=== PATIENT | female | born 1950 | race Caucasian/White ===

== ENCOUNTER → 2021-11-25 12:23 | Outpatient (CLI) | payer MEDICARE, SELFPAY ==
--- NOTE | 2021-11-25 12:29 | XR_ITS ---
FINAL REPORT CLINICAL HISTORY: RT foot sx back in august 2021 FINDINGS: RIGHT FOOT Three views of the right foot demonstrate postoperative changes of the midfoot and forefoot involving the cuneiform and 1st, 2nd and 3rd metatarsals and the 1st metatarsophalangeal joint. There are multiple screw plates and screws present. There is a questionable small fracture of the proximal lateral aspect of the 2nd proximal phalanx. There are moderate degenerative changes. There are calcaneal spurs. The bones are osteopenic. There are no soft tissue abnormalities. IMPRESSION: Postoperative and degenerative changes as described. Questionable small fracture of the 2nd proximal phalanx. Follow-up radiographs may be helpful. Reviewed, Interpreted and Dictated by Sorin Berry III, MD Transcribed by Georgie Redding Authenticated by Sorin Berry III, MD on 11/25/2021 01:18:06 PM [facility]
== END ==
PROVIDERS: PCP Family Medicine; Visit Provider Orthopaedic Surgery
DX: Z09 Encounter for follow-up examination after completed treatment for conditions other than malignant neoplasm (principal); M79.671 Pain in right foot
CPT/HCPCS: 73630

== ENCOUNTER → 2022-02-24 12:26 | Outpatient (CLI) | payer MEDICARE, SELFPAY ==
--- NOTE | 2022-02-24 12:32 | XR_ITS ---
FINAL REPORT CLINICAL HISTORY: rt foot pain-- post surg COMPARISON: 11/25/2021 FINDINGS: RIGHT FOOT Three views were obtained. There are postoperative changes seen at the 1st, 2nd, and 3rd tarsometatarsal joints and the 1st metatarsophalangeal joint. There are multiple screw plates and screws which are visually stable. There are mild and moderate degenerative changes and calcaneal spurs noted. IMPRESSION: Degenerative and postsurgical changes as above. Reviewed, Interpreted and Dictated by Sorin Berry III, MD Transcribed by Sofia Gutierrez Authenticated by Sorin Berry III, MD on 02/24/2022 01:32:21 PM [facility]
== END ==
PROVIDERS: PCP Family Medicine; Visit Provider Orthopaedic Surgery
DX: M20.11 Hallux valgus (acquired), right foot (principal); M20.21 Hallux rigidus, right foot
CPT/HCPCS: 73630

== ENCOUNTER → 2022-05-19 12:50 | Outpatient (CLI) | payer MEDICARE, SELFPAY ==
--- NOTE | 2022-05-19 12:55 | XR_ITS ---
FINAL REPORT CLINICAL HISTORY: foot fracture F/U, POST OP COMPARISON: February 24, 2022 FINDINGS: 3 views of the right foot were obtained. The bones are osteopenic. There are side plates and screws securing the 1st MTP joint and the 1st through 3rd tarsal metatarsal joints. There is no acute fracture or dislocation. There are yopm-fo-vazlhcmz hypertrophic changes from the 2nd through 5th MTP joints. There are mild hypertrophic changes of the intertarsal joints. The soft tissues are unremarkable. IMPRESSION: Stable postoperative changes. Reviewed, Interpreted and Dictated by Khang Dougherty MD Transcribed by Lalito Maddox Authenticated and [facility]
== END ==
PROVIDERS: PCP Family Medicine; Visit Provider Orthopaedic Surgery
DX: M20.21 Hallux rigidus, right foot (principal)
CPT/HCPCS: 73630

== ENCOUNTER → 2022-09-08 13:26 | Outpatient (CLI) | payer MEDICARE, SELFPAY ==
--- NOTE | 2022-09-08 13:30 | XR_ITS ---
FINAL REPORT CLINICAL HISTORY: foot fracture COMPARISON: 05/19/2022 FINDINGS: RIGHT FOOT: Three views of the right foot were obtained. Again noted are postoperative changes with multiple screw plates and multiple screws. Bony alignment is stable. There are moderate degenerative changes. No new bony abnormality is identified. There is no soft tissue abnormality. IMPRESSION: Postoperative and moderate degenerative changes with no new bony abnormality. Reviewed, Interpreted and Dictated by Sorin Berry III, MD Transcribed by Georgie Redding Authenticated and [facility]
== END ==
PROVIDERS: PCP Family Medicine; Visit Provider Orthopaedic Surgery
DX: S92.901A Unspecified fracture of right foot, initial encounter for closed fracture (principal)
CPT/HCPCS: 73630

== ENCOUNTER 2024-06-25 13:48 | Outpatient (CLI) | payer MEDICARE, SELFPAY ==
--- NOTE | 2024-06-25 13:51 | MM_ITS ---
PROCEDURE INFORMATION: Exam: MG Bilateral Screening 3D Mammography Exam date and time: 06/25/2024 1:39 PM Age: 73 years old Clinical indication: Screening examination TECHNIQUE: Imaging protocol: Bilateral Screening tomosynthesis and 2D mammography including computer-aided detection (CAD) when performed. COMPARISON: No relevant prior studies available. FINDINGS: MAMMOGRAPHY: Breast composition: There are scattered areas of fibroglandular density. Mass: questionable 0.6 cm mass in the middle third of the right medial breast only well seen in the craniocaudal projection Architectural distortion: None. Calcifications: No suspicious calcifications. Asymmetric density: None. Skin thickening: None. Axillary adenopathy: None. IMPRESSION: Patient to be recalled for a spot compression view of the right breast in the craniocaudal projection, a full 90 degree lateral view of the right breast, and possible right breast ultrasound for further evaluation of a questionable right breast mass. ASSESSMENT: BI-RADS Category 0: Incomplete- Need Additional Imaging Evaluation and/or Prior Mammograms for Comparison.
== END 2024-06-25 23:59 | disposition home or self-care (01) ==
LOC: RAD 13:48
PROVIDERS: PCP Family Medicine; Visit Provider Family Medicine
DX: Z12.31 Encounter for screening mammogram for malignant neoplasm of breast (principal)
CPT/HCPCS: 77063; 77067

== ENCOUNTER 2024-07-04 14:03 | Outpatient (CLI) | payer MEDICARE, SELFPAY ==
--- NOTE | 2024-07-04 14:09 | US_ITS ---
PROCEDURE INFORMATION: Exam: US Right Breast, Complete Exam date and time: 07/04/2024 2:18 PM Age: 73 years old Clinical indication: Callback for additional assessment of possible 0.6 cm mass in the medial right breast identified on 06/25/2024 screening mammogram. No correlate on MLO. TECHNIQUE: Imaging protocol: Complete ultrasound of all four quadrants of the right breast and the retroareolar regions, including ultrasound of the axilla when performed. COMPARISON: MG MM DIG SCREENING MAMM BI W/CAD 06/25/2024 1:39 PM FINDINGS: ULTRASOUND: Breast ultrasound findings: Right breast 4 quadrants and retroareolar breast ultrasound and bilateral axilla ultrasound Only normal glandular structures are present in the regions assessed No suspicious solid or cystic mass is present. No benign-appearing solid or cystic mass is present. No architectural distortion or shadowing is present. No axillary adenopathy is present. IMPRESSION: No sonographic evidence of malignancy. Annual mammographic screening is recommended unless otherwise clinically indicated. ASSESSMENT: BI-RADS category 1: Negative
== END 2024-07-04 23:59 | disposition home or self-care (01) ==
LOC: RAD 14:04
PROVIDERS: PCP Family Medicine; Visit Provider Nurse Practitioner
DX: R92.8 Other abnormal and inconclusive findings on diagnostic imaging of breast (principal)
CPT/HCPCS: 76641

== ENCOUNTER 2024-12-18 14:23 | Outpatient (CLI) | payer MEDICARE, SELFPAY ==
--- NOTE | 2024-12-18 14:35 | XR_ITS ---
FINAL REPORT CLINICAL HISTORY: Foot Pain FINDINGS: Three views show no evidence of acute displaced fracture or dislocation of the visualized bony architecture. There are mild to moderate degenerative changes of the midfoot, most pronounced medially. There is no evidence of periosteal reaction. Mild calcaneal spurring is identified. IMPRESSION: Degenerative changes without acute bony abnormality. Reviewed, Interpreted and Dictated by Santiago Chen MD Transcribed by Sofia Gutierrez Authenticated and . [facility]
--- NOTE | 2024-12-18 14:35 | XR_ITS ---
FINAL REPORT CLINICAL HISTORY: Foot Pain COMPARISON: 09/08/2022 FINDINGS: Three views show no evidence of acute displaced fracture or dislocation of the visualized bony architecture. There are extensive postoperative changes of the medial midfoot and first metatarsophalangeal joint. Surgical fusion hardware is stable. The bones are osteopenic. IMPRESSION: Stable exam. Reviewed, Interpreted and Dictated by Santiago Chen MD Transcribed by Sofia Gutierrez Authenticated and [facility]
== END 2024-12-18 23:59 | disposition home or self-care (01) ==
LOC: RAD 14:24
PROVIDERS: PCP Family Medicine; Visit Provider Podiatrist
DX: M79.671 Pain in right foot (principal); M79.672 Pain in left foot
CPT/HCPCS: 73630

== ENCOUNTER 2025-02-09 12:47 | Outpatient (CLI) | payer MEDICARE, SELFPAY ==
--- NOTE | 2025-02-09 12:59 | US_ITS ---
FINAL REPORT CLINICAL HISTORY: .EVAL FOR HARDWARE LOOSENING,NUMBNESS COMPARISON: None FINDINGS: ANKLE-BRACHIAL PRESSURE INDICES Pressure indices are as follows: RIGHT LOWER EXTREMITY: Ankle-brachial pressure index: 1.1 Comments: Normal LEFT LOWER EXTREMITY: 1.02 Ankle-brachial pressure index: Comments: Normal CONCLUSION: No evidence of significant obstructive peripheral vascular disease of the lower extremities Reviewed, Interpreted and Dictated by Khang Dougherty MD Transcribed by Ruthie Harris Authenticated and [facility]
--- NOTE | 2025-02-09 13:00 | CT_ITS ---
FINAL REPORT CLINICAL HISTORY: Eval for hardware loosening, fusion non-union FINDINGS: CT RIGHT FOOT WITHOUT CONTRAST TECHNIQUE: Axial and reformatted sagittal and coronal images were obtained of the right foot. This study was performed with techniques to keep radiation doses as low as reasonably achievable, (ALARA). Individualized dose reduction techniques using automated exposure control or adjustment of mA and/or kV according to the patient's size were employed. FINDINGS: There is a cystic focus within the calcaneus measuring 1.6 cm. A moderate plantar calcaneal spur is noted. There is a Gold deformity. There is a sideplate and screws over the dorsal aspect of the 1st, 2nd, and 3rd tarsometatarsal joints with fusion of the joint spaces. There has been fusion of the first metatarsophalangeal joint. There is no definite bony resorption. No pathologic fracture is seen. IMPRESSION: Orthopedic hardware over the dorsal aspect of the 1st, 2nd, and 3rd tarsometatarsal joints. Hardware along the dorsal and medial aspect of the first metatarsophalangeal joint. No definite evidence of hardware failure. Reviewed, Interpreted and Dictated by Khang Dougherty MD Transcribed by Tressa Rodriguez Authenticated and [facility]
== END 2025-02-09 23:59 | disposition home or self-care (01) ==
LOC: RAD 12:48
PROVIDERS: PCP Family Medicine; Visit Provider Podiatrist
DX: R09.89 Other specified symptoms and signs involving the circulatory and respiratory systems (principal); M79.671 Pain in right foot; R20.8 Other disturbances of skin sensation; Z96.9 Presence of functional implant, unspecified
CPT/HCPCS: 73700; 93923

== ENCOUNTER 2025-05-22 12:28 | Outpatient (CLI) | payer MEDICARE, SELFPAY ==
--- OUTSIDE RECORDS SUMMARY | 2025-05-22 12:31 | XMS_ITS ---
Author Organization Unknown Results OrderDate OrderTestName ResultName ResultDate Value Units Range AbnormalFlag ResultStatus ObservationNotes TestCode ResultCode DateRecorded AccessionNumber DiagnosticSectionCode DiagnosticSectionName Sequence Interpretation Cust om 06/17/2024 00:00:00 Glucose Fasting Glucose 9640-19-74L31:00:00 307 mg/dl 73 - 118 mg/dl Allyson Ball 06/17/2024 10:44:54 AM >KASHIF SIBLEY Glucose Fasting 06/17/2024 00:00: 00:00:00Glucose CcvdnmiKbaeuca1441-33-62D54:00:00 176mg/dl73 - 118 mg/dlReNohemi Fitzgerald 06/25/2024 09:02:05 AM > Coding Glucose Fasting 06/25/2024 00:00: 00:00:00Glucose EbpminpUqcsgtq2274-40-04R35:00:00 119mg/dl73 - 118 mg/dlReELVIS Shore 08/05/2024 10:09:25 AM EDT >ORA Coding Glucose Fasting 08/05/2024 00:00: 00:00:00Glycohemoglobin (GHb),TotalGlycohemoglobin (GHb),Lijzz5881-33-73I17:00:006.3RELVIS Montejo 08/05/2024 10:13:44 AM EDT >ORA Coding Glycohemoglobin (GHb),Total Coding Glycohemoglobin (GHb),Total 08/05/2024 00:00:00111/09/2023 00:00:00MicroalbuminA:P3481-26-23L70:00:00<30 Nohemi Lopez 09/09/2024 11:08:46 AM EST >ELVIS JOY Amber 09/17/2024 07:57:57 AM EST > Coding Microalbumin 09/09/2024 00:00: 00:00:42ZuawpcbbvbzdUBQ2996-65-54H06:00:0050 Nohemi Lopez 09/09/2024 11:08:46 AM EST >KHALIF JOYKARI Clark 09/17/2024 07:57:57 AM EST > Coding Microalbumin 09/09/2024 00:00: 00:00:14VstalbsdnlxqPSJ4198-17-20P13:00:0010 Nohemi Lopez 09/09/2024 11:08:46 AM EST >BENITA ELVIS Clark 09/17/2024 07:57:57 AM EST > Coding Microalbumin Coding ALB 09/09/2024 00:00: 00:00:36QvhkgiaxjymzDysuh8914-61-43B13:00:00YELLOW Nohemi Lopez 09/09/2024 11:08:46 AM EST >BENITA ELVIS Clark 09/17/2024 07:57:57 AM EST > Coding Microalbumin 09/09/2024 00:00: 00:00:14HtlipzkrnfofUocrzzt3482-46-84G29:00:00 CLEARReNohemi Fitzgerald 09/09/2024 11:08:46 AM EST >BENITA ELVIS Clark 09/17/2024 07:57:57 AM EST > Coding Microalbumin 09/09/2024 00:00: 00:00:00Glucose YeyylxlAyloiaz9273-56-78U83:00:00 102mg/dl73 - 118 mg/dlNohemi Lopez 09/09/2024 10:58:26 AM EST >KHALIF JOYKARI Clark 09/17/2024 07:58:02 AM EST > Coding Glucose Fasting 09/09/2024 00:00: 00:00:00Urinalysis, CompleteGlucose 1390-74-26M68:00:00NEGReNohemi Fitzgerald 09/09/2024 11:09:26 AM EST >ELVIS JOY 09/17/2024 07:57:41 AM EST > Coding Urinalysis, Complete Coding Glucose 09/09/2024 00:00: 00:00:00Urinalysis, CompleteBilirubin 0833-53-18R16:00:00NEGReNohemi Fitzgerald 09/09/2024 11:09:26 AM EST >BENITA ELVIS Clark 09/17/2024 07:57:41 AM EST > Coding Urinalysis, Complete Coding Bilirubin 09/09/2024 00:00: 00:00:00Urinalysis, CompleteKetones 2482-20-25R80:00:00NEGReNohemi Fitzgerald 09/09/2024 11:09:26 AM EST >ELVIS JOY 09/17/2024 07:57:41 AM EST > Coding Urinalysis, Complete Coding Ketones 09/09/2024 00:00: 00:00:00Urinalysis, CompleteSpecific [place] 7752-53-88I36:00:001.015ReNohemi Fitzgerald 09/09/2024 11:09:26 AM EST >ELVIS JOY 09/17/2024 07:57:41 AM EST > Coding Urinalysis, Complete Coding Specific [place] 09/09/2024 00:00: 00:00:00Urinalysis, CompleteOccult Blood 6696-82-71K74:00:00NEGReNohemi Fitzgerald 09/09/2024 11:09:26 AM EST >ELVIS JOY 09/17/2024 07:57:41 AM EST > Coding Urinalysis, Complete Coding Occult Blood 09/09/2024 00:00: 00:00:00Urinalysis, IdtjfluboC9334-19-92Q85:00:00 7.0ReNohemi Fitzgerald 09/09/2024 11:09:26 AM EST >ELVIS JOY 09/17/2024 07:57:41 AM EST > Coding Urinalysis, Complete Coding pH 09/09/2024 00:00: 00:00:00Urinalysis, CompleteProtein 0663-60-52T42:00:00NEGReNohemi Fitzgerald 09/09/2024 11:09:26 AM EST >ELVIS JOY 09/17/2024 07:57:41 AM EST > Coding Urinalysis, Complete Coding Protein 09/09/2024 00:00:00111/09/2023 00:00:00Urinalysis, CompleteUrobilinogen,Semi-Qn 0438-20-37R26:00:000.2RNohemi Lentz 09/09/2024 11:09:26 AM EST >ELVIS JOY Amber 09/17/2024 07:57:41 AM EST > Coding Urinalysis, Complete Coding Urobilinogen,Semi-Qn 09/09/2024 00:00: 00:00:00Urinalysis, CompleteNitrite, Urine 4354-57-96O03:00:00NEGNohemi Lopez 09/09/2024 11:09:26 AM EST >ELVIS JOY Amber 09/17/2024 07:57:41 AM EST > Coding Urinalysis, Complete Coding Nitrite, Urine 09/09/2024 00:00: 00:00:00Urinalysis, CompleteWBC Esterase 6346-36-88J99:00:00SMNohemi Geronimo 09/09/2024 11:09:26 AM EST >ELVIS JOY 09/17/2024 07:57:41 AM EST > Coding Urinalysis, Complete Coding WBC Esterase 09/09/2024 00:00: 00:00:00Glucose OwltsqnJfpglab7294-80-80X85:00:00 92mg/dl73 - 118 mg/dlNohemi Lopez 10/15/2024 11:35:24 AM EST > Coding Glucose Fasting 10/15/2024 00:00: 00:00:00MicroalbuminA:E0589-86-05V86:00:0030-300 Nohemi Lopez 11/19/2024 12:09:25 PM EST > Coding Microalbumin 11/19/2024 00:00: 00:00:78VxrysaxmpckqYBW0276-34-85E09:00:11595 Nohemi Lopez 11/19/2024 12:09:25 PM EST > Coding Microalbumin 11/19/2024 00:00: 00:00:93NvvewravwjapEXS5137-42-17Y56:00:0080 Nohemi Lopez 11/19/2024 12:09:25 PM EST > Coding Microalbumin Coding ALB 11/19/2024 00:00: 00:00:37RwnfnrojueuuVpamf1840-86-86R35:00:00YELLOW Nohemi Lopez 11/19/2024 12:09:25 PM EST > Coding Microalbumin 11/19/2024 00:00: 00:00:11CvsvdjamggbyCfctxzw3073-43-19K77:00:00 CLEARReNohemi Fitzgerald 11/19/2024 12:09:25 PM EST > Coding Microalbumin 11/19/2024 00:00: 00:00:00Glycohemoglobin (GHb),TotalGlycohemoglobin (GHb),Wxllh0861-71-34Q38:00:005.6RevNohemi Verdin 11/19/2024 12:08:40 PM EST > Coding Glycohemoglobin (GHb),Total Coding Glycohemoglobin (GHb),Total 11/19/2024 00:00:00
--- NOTE | 2025-05-22 12:33 | XR_ITS ---
FINAL REPORT TECHNIQUE: 5 views CLINICAL HISTORY: CHRONIC BACK PAIN BILATERAL HIP PAIN NO INJURY FINDINGS: There is no fracture present. There is no malalignment. There is moderate diffuse degenerative disc disease. IMPRESSION: Moderate degenerative changes. Reviewed, Interpreted and Dictated by Santiago hCen MD Transcribed by Sofia Gutierrez Authenticated and . [facility]
== END 2025-05-22 23:59 | disposition home or self-care (01) ==
LOC: RAD 12:29
PROVIDERS: PCP Family Medicine; Visit Provider Family Medicine
DX: M47.816 Spondylosis without myelopathy or radiculopathy, lumbar region (principal)
CPT/HCPCS: 72110

== ENCOUNTER 2025-07-28 11:27 | Outpatient (CLI) | payer MEDICARE, SELFPAY ==
--- NOTE | 2025-07-28 | XR_ITS ---
FINAL REPORT TECHNIQUE: 5 views of the lumbar spine CLINICAL HISTORY: HIP PAIN SCIATIC NERVE PAIN FINDINGS: LUMBAR SPINE 6 views of the lumbar spine were obtained. No prior exam was submitted for comparison. There is no fracture present. There is no malalignment. There is multilevel degenerative disc disease, most pronounced at L4-5. IMPRESSION: No acute process. Reviewed, Interpreted and Dictated by Karin Lugo MD Transcribed by Ana Figueroa Authenticated and [facility]
--- NOTE | 2025-07-28 | XR_ITS ---
FINAL REPORT CLINICAL HISTORY: pain, no injury FINDINGS: AP and frog leg views of the right hip as well as an AP view of the pelvis were obtained. There is no acute fracture or dislocation. There is degenerative disease of the hips. Soft tissues are unremarkable. IMPRESSION: No acute osseous abnormality of the right hip. Reviewed, Interpreted and Dictated by Karin Lugo MD Transcribed by Ana Figueroa Authenticated and . [facility]
--- NOTE | 2025-07-28 | XR_ITS ---
FINAL REPORT CLINICAL HISTORY: pain , no injury FINDINGS: AP and frog leg views of the right hip were obtained. There is degenerative disease of the right hip. There is no acute fracture or dislocation. Soft tissues are unremarkable. IMPRESSION: No acute osseous abnormality of the right hip. Reviewed, Interpreted and Dictated by Karin Lugo MD Transcribed by Ana Figueroa Authenticated and [facility]
== END 2025-07-28 23:59 | disposition home or self-care (01) ==
LOC: RAD 11:28
PROVIDERS: PCP Family Medicine; Visit Provider Family Medicine
DX: M25.551 Pain in right hip (principal); M54.30 Sciatica, unspecified side
CPT/HCPCS: 72110; 73502

== ENCOUNTER 2025-09-04 13:46 | Outpatient (CLI) | payer MEDICARE, SELFPAY ==
--- NOTE | 2025-09-04 13:48 | MR_ITS ---
FINAL REPORT CLINICAL HISTORY: LOWER BACK PAIN pain numbness and tingling goes down legs FINDINGS: Multiplanar MR imaging of the lumbar spine was performed without contrast. On the sagittal T2-weighted images, there is abnormal decreased signal throughout the lumbar discs. The vertebrae are of normal height. The vertebral alignment is normal. L1-2: There is no significant canal stenosis or neural foraminal narrowing. L2-3: There is no significant canal stenosis or neural foraminal narrowing. L3-4: Moderate diffuse disc bulge. Right posterolateral disc protrusion with moderate right neuroforaminal narrowing. L4-5: Moderate diffuse disc bulge and endplate hypertrophy. Left posterolateral disc protrusion with moderate right and moderate to high-grade left neuroforaminal narrowing. L5-S1: Mild diffuse disc bulge. Left posterolateral disc protrusion with moderate left neuroforaminal narrowing. IMPRESSION: Right posterolateral disc protrusion at L3-4. Left posterolateral disc protrusions at L4-5 and L5-S1 with moderate to high-grade left neuroforaminal narrowing at L4-5. Reviewed, Interpreted and Dictated by Khang Dougherty MD Transcribed by Sofia Gutierrez Authenticated and [facility][1]
== END 2025-09-04 23:59 | disposition home or self-care (01) ==
LOC: RAD 13:47
PROVIDERS: PCP Family Medicine; Visit Provider Internal Medicine Cardiovascular Disease
DX: M51.26 Other intervertebral disc displacement, lumbar region (principal); M51.27 Other intervertebral disc displacement, lumbosacral region; M99.73 Connective tissue and disc stenosis of intervertebral foramina of lumbar region
CPT/HCPCS: 72148